=== PATIENT | female | born 1985 | race Caucasian/White ===

== ENCOUNTER 2023-02-14 16:43 | Emergency (ER) | payer MEDICAID ==
[~2023-02-14] VITALS: Ht 175.3 cm; Wt 111.0 kg
[~2023-02-14 16:43] MED LIST: ALBU6.7H3 IH; BENZ1LOZ30 PO; DIVA-74 PO; HYDR-3686 PO; METH20TA PO; NAPR-56 PO; NORG1TAB41 PO; SERT25TA PO
[2023-02-14 17:21] VITALS: BP 145/95; PULSE 97; RESP 17; TEMP 99.2; O2SAT 96
[2023-02-14] MEDS ORDERED: CEPH-585 PO (18:31)
== END 2023-02-14 18:52 | disposition home or self-care (01) ==
LOC: ER 16:45
DX: S51.812A Laceration without foreign body of left forearm, initial encounter (principal); F41.9 Anxiety disorder, unspecified; F31.9 Bipolar disorder, unspecified; F12.90 Cannabis use, unspecified, uncomplicated; Z98.890 Other specified postprocedural states; Z88.8 Allergy status to other drugs, medicaments and biological substances; Z79.899 Other long term (current) drug therapy; W26.8XXA Contact with other sharp object(s), not elsewhere classified, initial encounter; Y93.89 Activity, other specified; Y92.89 Other specified places as the place of occurrence of the external cause; Y99.8 Other external cause status
CPT/HCPCS: 99283